=== PATIENT | male | born 1965 | race Hispanic/Latino ===

== ENCOUNTER 2024-12-04 14:07 | Emergency (ER) | payer OTHER ==
--- NOTE | 2024-12-04 14:44 | RAD REPORT ---
EXAM: Chest Single View HISTORY: near syncope COMPARISON: None. FINDINGS: LUNGS/PLEURA: Nonspecific prominence of the pulmonary interstitium. No focal consolidation or evidenc e of edema. MEDIASTINUM: The mediastinal silhouette is within normal limits. CARDIAC: The cardiac silhouette is within normal limits. UPPER ABDOMEN: No significant abnormality. BONES: No acute abnormality. LINES/TUBES/OTHER: N/A IMPRESSION: No evidence of acute cardiopulmonary disease.
--- NOTE | 2024-12-04 15:01 | RAD REPORT ---
EXAMINATION: CT HEAD WITHOUT CONTRAST CLINICAL INDICATION: Male, 59 years old.DIZZINESS TECHNIQUE: Axial CT images from the skull base to the vertex without intravenous contrast. Coronal an d sagittal reformatted images were created from the data set. One or more of the following dose reduction techniques were used: Automated exposure control, adjustment of the mA and/or kV according to patient size, and/or iterative reconstruction. Unless otherwise specified, incidental findings do not require dedicated imaging follow-up. [id number]. COMPARISON: No prior exam. FINDINGS: INTRACRANIAL: No acute intracranial hemorrhage. No hydrocephalus. No mass effect or midline shift. No significant white matter disease. VASCULATURE: No visualized abnormalities in the arteries or dural venous sinuses. SCALP/SKULL: No significant soft tissue or osseous abnormalities. SINUSES: The visualized paranasal sinuses and mastoid air cells are predominantly clear. IMPRESSION: No acute intracranial abnormality.
[2024-12-04] MEDS ORDERED: MECLIZINE HCL 12.5 MG TAB ONE (15:04)
[2024-12-04] MEDS ORDERED: NA CHLORIDE 0.9% 1,000 ML ONE (15:04)
[2024-12-04 15:46] LABS: Absolute Basophils 0.1 K/uL (0-0.5); Absolute Eosinophils 0.1 K/uL (0-0.5); Absolute Lymphocytes (CBC) 1.8 K/uL (0.7-4.9); Absolute Monocytes 0.5 K/uL (0.1-1.3); Basophils % 0.8 % (0-1.3); Eosinophils % 1.5 % (0-4.4); Hematocrit 39.6 % (39.6-49.0); Hemoglobin 13.7 g/dL (13.6-17.9); Lymphocytes % 23.8 % (15.3-44.8); MCH 28.5 pg (27.0-35.0); MCHC 34.6 g/dL (32.0-36.0); MCV 82.4 fL (80-100); MPV 10.8 fL (7.6-11.3); Monocytes % 6.1 % (3.3-12.3); Neutrophils % 67.8 % (41.7-73.7); Platelets 183 thou/uL (152-406); RBC Red Blood Cell Count 4.81 M/uL (4.33-5.43); Red Cell Distribution Width 13.5 % (12.1-15.2)
[2024-12-04 15:51] LABS: PT Prothrombin Time 11.4 SECONDS (9.4-12.5); Protime INR 1.09
[2024-12-04 16:03] LABS: ALT/SGPT 22 U/L (16-61); AST/SGOT 11 U/L (15-37); Albumin 3.1 g/dL (3.4-5.0); Albumin/Globulin Ratio 0.8 (1.1-1.8); Alkaline Phosphatase 84 U/L (45-117); Anion Gap 8.2 mEq/L (5.0-15.0); BUN Blood Urea Nitrogen 19 mg/dL (7-18); Bicarbonate 27 mEq/L (21-32); Bilirubin Total 0.4 mg/dL (0.2-1.0); Globulin 3.8 g/dL (2.3-3.5); Glomerular Filtration Rate 79 ml/min (=/>90); Glucose Level 310 mg/dL (74-106); Potassium 4.2 mEq/L (3.5-5.1); Protein, Total 6.9 g/dL (6.4-8.2); Sodium Level 136 mEq/L (136-145); Troponin High Sensitivity 3.4 pg/mL (<58.9)
[2024-12-04 16:05] LABS: Bilirubin Direct < 0.2 mg/dL (0-0.2); Bilirubin Indirect, Calculated 0.2 mg/dL (0.2-0.8)
[2024-12-04] MEDS ORDERED: INSULIN REGULAR (HUMAN) 100 UNIT/ML ONE (18:19)
[2024-12-04] MEDS ORDERED: NA CHLORIDE 0.9% 500 ML ONE (18:20)
[2024-12-04 19:04] LABS: Specific Gravity 1.013 (1.005-1.030); Sqamous Epithelial <5 /HPF (None Seen); Urine Bacteria None Seen /HPF (<20); Urine Bilirubin NEGATIVE (Negative); Urine Blood Negative (Negative); Urine Clarity Clear (Clear); Urine Color Light-Yellow (Yellow); Urine Culture Reflex Order NOT NEEDED; Urine Glucose 4+ (Over) (Negative); Urine Ketones NEGATIVE (Negative); Urine Micro Reflex YN NO BILL MICROSCOPIC; Urine Nitrite NEGATIVE (Negative); Urine Protein 1+ (Negative); Urine RBC <5 /HPF (None Seen); Urine Urobilinogen Normal (Normal); Urine WBC <5 /HPF (<5); Urine pH 5.5 (5.0-7.0)
--- NOTE | 2024-12-04 19:19 | EDPHYS ---
Physician Documentation [facility] Name: Jose Mckoy Age: 59 yrs Sex: Male : 1965 Arrival Date: 12/04/2024 Time: 14:07 Bed 15 Private MD: ED Physician Elia Gomez HPI: 12/04 14:20 This 59 yrs old Male presents to ER via EMS with complaints of Dizziness. cp 14:20 The patient presents with dizziness, feeling faint, lightheadedness. Onset: The cp symptoms/episode began/occurred today. 14:20 Context: occurred while the patient was working, just prior to the episode the patient cp experienced lightheadedness. 14:20 Associated signs and symptoms: Pertinent negatives: abdominal pain, chest pain, focal cp weakness, headache, palpitations, syncope. Severity of symptoms: in the emergency department the symptoms have improved mildly. Patient's baseline: Neuro: alert and fully oriented, Motor: no deficits, Ambulation: walks without assistance, Speech: normal. Patient with PMH significant for DM. Reports blood glucose usually runs over 300 and that he has not seen a doctor for several years due to lack of insurance. Currently has insurance and has appt with new physician next month. Historical: - Allergies: 14:18 No Known Allergies; db - PMHx: 14:18 Diabetes mellitus; db - Immunization history:: Adult Immunizations unknown. - Infectious Disease History:: Denies. - Social history:: Smoking status: Patient denies any tobacco usage or history of. ROS: 14:25 Constitutional: Negative for body aches, chills, fever, poor PO intake, cp 14:25 Eyes: Negative for injury, pain, redness, and discharge, cp 14:25 ENT: Negative for drainage from ear(s), ear pain, sore throat, difficulty swallowing, difficulty handling secretions, 14:25 Cardiovascular: Negative for chest pain, edema, palpitations, 14:25 Respiratory: Negative for cough, shortness of breath, wheezing, 14:25 Abdomen/GI: Negative for abdominal pain, vomiting, diarrhea, constipation, black/tarry stool, rectal bleeding, 14:25 Neuro: Positive for dizziness, near syncope, Negative for headache, seizure activity, speech changes, syncope, visual changes, weakness, 14:25 All other systems are negative, Exam: 14:30 Constitutional: The patient appears in no acute distress, alert, awake, cp non-diaphoretic, non-toxic, well developed, well nourished, 14:30 Head/Face: Normocephalic, atraumatic. cp 14:30 Eyes: Periorbital structures: appear normal, Conjunctiva: normal, no exudate, no injection, Sclera: no appreciated abnormality, Lids and lashes: appear normal, bilaterally, 14:30 ENT: External ear(s): are unremarkable, Nose: is normal, Mouth: Lips: moist, Oral mucosa: moist, Posterior pharynx: Airway: no evidence of obstruction, patent, 14:30 Neck: ROM/movement: is normal, is supple, without pain, no range of motions limitations, no meningismus, no nuchal rigidity, 14:30 Chest/axilla: Inspection: normal, 14:30 Cardiovascular: Rate: normal, Rhythm: regular, Edema: is not appreciated, JVD: is not appreciated, 14:30 Respiratory: the patient does not display signs of respiratory distress, Respirations: normal, no use of accessory muscles, no retractions, labored breathing, is not present, Breath sounds: are clear throughout, no decreased breath sounds, no stridor, no wheezing, 14:30 Abdomen/GI: Inspection: abdomen appears normal, Palpation: abdomen is soft and non-tender, in all quadrants, 14:30 Back: pain, is absent, ROM is normal, 14:30 Neuro: Orientation: to person, place \T\ time. Mentation: is normal, Cerebellar function: Romberg testing is negative, Motor: moves all fours, no focal deficits, Sensation: no obvious gross deficits, 15:33 ECG was reviewed by the Attending Physician. cp Vital Signs: 14:05 BP 127 / 69; Pulse 93; Resp 18; Temp 98.1; Pulse Ox 95% on R/A; Weight 90.72 kg; Height db 5 ft. 8 in. ; Pain 0/10; 14:30 BP 133 / 70; Pulse 83; Resp 16; Pulse Ox 99% on R/A; db 15:30 BP 129 / 95; Pulse 81; Resp 16; Pulse Ox 95% on R/A; db 16:30 BP 150 / 84; Pulse 68; Resp 16; Pulse Ox 98% on R/A; db 17:30 BP 151 / 90; Pulse 78; Resp 16; Pulse Ox 98% on R/A; db 18:00 BP 153 / 80; Pulse 76; Resp 16; Pulse Ox 99% on R/A; db 19:00 BP 162 / 86; Pulse 72; Resp 16; Pulse Ox 98% ; db 19:15 BP 150 / 88; Pulse 86; Resp 18; Pulse Ox 97% on R/A; Pain 0/10; rg5 14:05 Body Mass Index 30.41 (90.72 kg, 172.72 cm) db 14:05 Pain Scale: Adult db 19:15 Pain Scale: Adult rg5 MDM: 14:11 Medical Screening Exam initiated cp 15:00 Differential diagnosis: cardiac arrhythmia, CVA, GI bleed, hypovolemia, idiopathic cp dizziness, TIA, vertigo, DKA. 19:18 Data reviewed: vital signs, nurses notes, lab test result(s), EKG, radiologic studies, cp CT scan, and as a result, I will discharge patient. 19:18 I considered the following discharge prescriptions or medication management in the emergency department Medications were administered in the Emergency Department. See MAR. 19:18 Independent interpretation of the following test(s) in the Emergency Department EKG: See my EKG interpretation above. Care significantly affected by the following chronic conditions: Diabetes. Care significantly affected by the following Social Determinants of Health: Poor access to healthcare and/or lack of insurance. Counseling: I had a detailed discussion with the patient and/or guardian regarding the historical points, exam findings, and any diagnostic results supporting the discharge/admit diagnosis, lab results, radiology results, the need for outpatient follow up, for definitive care, a family practitioner, to return to the emergency department if symptoms worsen or persist or if there are any questions or concerns that arise at home. Response to treatment: the patient's symptoms have markedly improved after treatment, and as a result, I will discharge patient. 12/04 14:18 Order name: Basic Metabolic Panel; Complete Time: 18:13 12/04 18:13 Interpretation: Normal except: GLUC 310; BUN 19; GFR 79. 12/04 14:18 Order name: CBC with Diff; Complete Time: 18:13 12/04 14:18 Order name: LFT's; Complete Time: 18:13 12/04 14:18 Order name: Magnesium; Complete Time: 18:13 cp 02 14:18 Order name: PT-INR; Complete Time: 18:13 cp 12/04 14:18 Order name: Troponin HS; Complete Time: 18:13 cp 12/04 14:29 Order name: Urinalysis W/Microscopic; Complete Time: 19:04 cp 02/ 19:05 Interpretation: Normal except: UGLUC 4+ (Over); UPROT 1+. cp 02/ 19:16 Order name: Glucose, Ancillary Testing; Complete Time: 19:18 EDMS 02/ 14:18 Order name: XRAY Chest (1 view); Complete Time: 15:33 cp 02 14:29 Order name: CT Head Brain wo Cont; Complete Time: 15:33 cp 12/04 14:18 Order name: Cardiac monitoring; Complete Time: 15:32 cp 12/04 14:18 Order name: EKG - Nurse/Tech; Complete Time: 15:32 cp 12/04 14:18 Order name: IV Saline Lock; Complete Time: 15:32 cp 12/04 14:18 Order name: Labs collected and sent; Complete Time: 15:32 cp 12/04 14:18 Order name: O2 Per Protocol; Complete Time: 15:32 cp 12/04 14:18 Order name: O2 Sat Monitoring; Complete Time: 15:32 cp 12/04 14:29 Order name: Accucheck Blood Glucose; Complete Time: 15:32 cp 03 19:03 Order name: Accucheck Blood Glucose; Complete Time: 19:18 cp EC:33 Rate is 81 beats/min. Rhythm is regular. CO interval is prolonged at 202 msec. QRS cp interval is normal. QT interval is normal. T waves are Inverted in lead aVR. Interpreted by me. Reviewed by me. Administered Medications: 00:00 Drug: NS 0.9% IV 500 ml 500 ml IV at 1 bolus once; to be given as a bolus over 30 db minutes Volume: 500 ml; Route: IV; Rate: 1 bolus; Site: right antecubital; 19:10 Follow up: IV Status: Completed infusion; IV Intake: 500ml rg5 15:15 Drug: NS 0.9% IV 1000 ml IV at 1 bolus Per protocol; to be given as a bolus over 60 db minutes Route: IV; Rate: 1 bolus; Site: right antecubital; 19:18 Follow up: Response: No adverse reaction; IV Status: Completed infusion; IV Intake: db 1000ml 15:20 Drug: Meclizine PO 25 mg PO once Route: PO; db 19:18 Follow up: Response: No adverse reaction db 18:21 Drug: Insulin Regular Human Sub-Q 10 units Sub-Q once {Co-Signature: [email or web address] (shraddha Russell RN).} Route: Sub-Q; Site: right lower abdomen; 19:18 Follow up: Response: No adverse reaction; Blood sugar is lowered db Point of Care Testing: Blood Glucose: 19:05 Blood Glucose: 231 mg/dL; db Ranges: Critical Glucose Levels:Adult <50 mg/dl or >400 mg/dl <40 mg/dl or >180 mg/dl Disposition: 12/05 11:56 I was immediately available on-site in the Emergency Department for consultation in the ms3 care of the patient. Disposition Summary: 12/04/24 19:18 Discharge Ordered Notes: Location: Home cp Problem: new cp Symptoms: have improved cp Condition: Stable cp Diagnosis - Diabetes mellitus due to underlying condition with hyperglycemia cp - Dizziness and giddiness cp - Syncope Near cp Followup: cp - With: Private Physician - When: 2 - 3 days - Reason: Recheck today's complaints Discharge Instructions: - Discharge Summary Sheet cp - Dizziness cp - Hyperglycemia cp - Near-Syncope cp - Daily Diabetes Mellitus Record cp - Blood Glucose Monitoring, Adult cp - Diabetes Mellitus and Nutrition, Adult cp Forms: - Medication Reconciliation Form cp - Antibiotic Education cp - Prescription Opioid Use cp - Patient Portal Instructions cp - Leadership Thank You Letter cp Prescriptions: - Meclizine 25 mg Oral Tablet - take 1 tablet ORAL route every 8 hours As needed; 30 tablet; Refills: 0, cp Product Selection Permitted - Zofran 4 mg Oral Tablet - take 1 tablet ORAL route every 12 hours As needed; 20 tablet; Refills: 0, cp Product Selection Permitted Signatures: Dispatcher [employer] EDKS Jono Escamilla PA PA cp Sims, Marcus, DO DO ms3 Ariana Tyler RN RN Luis Vides RN rg5 Brie Russell RN kj2 Corrections: (The following items were deleted from the chart) 12/04 14:18 14:18 BASIC METABOLIC PANEL+C.LAB.BRZ ordered. EDMS EDMS 14:18 14:18 CBC+H.LAB.BRZ ordered. EDMS EDMS 14:18 14:18 HEPATIC FUNCTION+C.LAB.BRZ ordered. EDMS EDMS 14:18 14:18 MAGNESIUM+C.LAB.BRZ ordered. EDMS EDMS 14:18 14:18 PROTIME (+INR)+COAG.LAB.BRZ ordered. EDMS EDMS 14:18 14:18 Troponin High Sensitivity+C.LAB.BRZ ordered. EDMS EDMS 14:18 14:18 Chest Single View+RAD.RAD.BRZ ordered. EDMS EDMS 14:30 14:30 Urinalysis W/Microscopic+U.LAB.BRZ ordered. EDMS EDMS
--- NOTE | 2024-12-04 19:19 | ER ---
Nurse's Notes [facility] Name: Jsoe Mckoy Age: 59 yrs Sex: Male : 1965 Arrival Date: 12/04/2024 Time: 14:07 Bed 15 Private MD: Diagnosis: Diabetes mellitus due to underlying condition with hyperglycemia;Dizziness and giddiness;Syncope Near Presentation: 12/04 14:05 Chief complaint: DIZZINESS TODAY, NEAR SYNCOPAL EPISODE X 2 WHILE WORKING. STATES LAST db ATE LAST NIGHT. STOPPED TAKING METFORMIN X 2 YEARS AGO DUE TO INSURANCE. STATES TAKES GLUCOSE PILLS WHEN SUGAR FEELS LOW. Coronavirus screen: Client denies travel out of the [place] in the last 14 days. At this time, the client does not indicate any symptoms associated with coronavirus-19. Ebola Screen: Patient negative for fever greater than or equal to 101.5 degrees Fahrenheit, and additional compatible Ebola Virus Disease symptoms Patient denies exposure to infectious person. Patient denies travel to an Ebola-affected area in the 21 days before illness onset. No symptoms or risks identified at this time. Initial Sepsis Screen: Does the patient meet any 2 criteria? No. Patient's initial sepsis screen is negative. Does the patient have a suspected source of infection? No. Patient's initial sepsis screen is negative. Risk Assessment: Do you want to hurt yourself or someone else? Patient reports no desire to harm self or others. Onset of symptoms was December 04, 2024. Care prior to arrival: Medication(s) given: Normal saline infusion, 500 mL, IV initiated. 20 GA, in the right antecubital area, Glucose check: 327. 14:05 Method Of Arrival: EMS: [facility] db 14:05 Acuity: LAYLA 3 db Triage Assessment: 14:18 General: Appears in no apparent distress. comfortable, Behavior is calm, cooperative. db Pain: Denies pain. Neuro: Level of Consciousness is awake, alert, obeys commands, Oriented to person, place, time, situation. Respiratory: Airway is patent Respiratory effort is even, unlabored, Respiratory pattern is regular, symmetrical. Historical: - Allergies: 14:18 No Known Allergies; db - PMHx: 14:18 Diabetes mellitus; db - Immunization history:: Adult Immunizations unknown. - Infectious Disease History:: Denies. - Social history:: Smoking status: Patient denies any tobacco usage or history of. Screenin:34 [facility] ED Fall Risk Assessment (Adult) History of falling in the last 3 months, db including since admission No falls in past 3 months (0 pts) Confusion or Disorientation No (0 pts) Intoxicated or Sedated No (0 pts) Impaired Gait No (0 pts) Mobility Assist Device Used No (0 pt) Altered Elimination No (0 pt) Score/Fall Risk Level 0 - 2 = Low Risk Oriented to surroundings, Maintained a safe environment. Abuse screen: Denies threats or abuse. Denies injuries from another. Nutritional screening: No deficits noted. Tuberculosis screening: No symptoms or risk factors identified. Assessment: 16:55 Reassessment: Patient appears in no apparent distress at this time. Patient and/or db family updated on plan of care and expected duration. Pain level reassessed. Patient is alert, oriented x 3, equal unlabored respirations, skin warm/dry/pink. General: Appears in no apparent distress. comfortable, Behavior is calm, cooperative. Neuro: Level of Consciousness is awake, alert, obeys commands, Oriented to person, place, time, situation. Respiratory: Airway is patent Respiratory effort is even, unlabored, Respiratory pattern is regular, symmetrical. 18:15 Reassessment: Patient appears in no apparent distress at this time. Patient and/or db family updated on plan of care and expected duration. Pain level reassessed. Patient is alert, oriented x 3, equal unlabored respirations, skin warm/dry/pink. Vital Signs: 14:05 BP 127 / 69; Pulse 93; Resp 18; Temp 98.1; Pulse Ox 95% on R/A; Weight 90.72 kg; Height db 5 ft. 8 in. ; Pain 0/10; 14:30 BP 133 / 70; Pulse 83; Resp 16; Pulse Ox 99% on R/A; db 15:30 BP 129 / 95; Pulse 81; Resp 16; Pulse Ox 95% on R/A; db 16:30 BP 150 / 84; Pulse 68; Resp 16; Pulse Ox 98% on R/A; db 17:30 BP 151 / 90; Pulse 78; Resp 16; Pulse Ox 98% on R/A; db 18:00 BP 153 / 80; Pulse 76; Resp 16; Pulse Ox 99% on R/A; db 19:00 BP 162 / 86; Pulse 72; Resp 16; Pulse Ox 98% ; db 19:15 BP 150 / 88; Pulse 86; Resp 18; Pulse Ox 97% on R/A; Pain 0/10; rg5 14:05 Body Mass Index 30.41 (90.72 kg, 172.72 cm) db 14:05 Pain Scale: Adult db 19:15 Pain Scale: Adult rg5 ED Course: 14:08 Patient arrived in ED. db 14:10 Jono Escamilla PA is PHCP. cp 14:11 Elia Gomez DO is Attending Physician. cp 14:18 Triage completed. db 14:18 Arm band placed on Patient placed in an exam room. db 14:19 Ariana Tyler, RN is Primary Nurse. db 14:39 XRAY Chest (1 view) In Process Unspecified. EDMS 14:44 CT Head Brain wo Cont In Process Unspecified. EDMS 15:15 Inserted saline lock: Maintain EMS IV. Dressing intact. Good blood return noted. Site db clean \T\ dry. Gauge \T\ site: 20 g rac. 18:34 Patient has correct armband on for positive identification. Bed in low position. Call db light in reach. Side rails up X 1. Client placed on continuous cardiac and pulse oximetry monitoring. NIBP monitoring applied. pvc monitor on. Pulse ox on. NIBP on. Warm blanket given. Pillow given. 19:15 Provided Education on: post er care. rg5 19:15 IV discontinued, bleeding controlled, No redness/swelling at site. Pressure dressing rg5 applied. 19:15 No provider procedures requiring assistance completed. rg5 Administered Medications: 00:00 Drug: NS 0.9% IV 500 ml 500 ml IV at 1 bolus once; to be given as a bolus over 30 db minutes Volume: 500 ml; Route: IV; Rate: 1 bolus; Site: right antecubital; 19:10 Follow up: IV Status: Completed infusion; IV Intake: 500ml rg5 15:15 Drug: NS 0.9% IV 1000 ml IV at 1 bolus Per protocol; to be given as a bolus over 60 db minutes Route: IV; Rate: 1 bolus; Site: right antecubital; 19:18 Follow up: Response: No adverse reaction; IV Status: Completed infusion; IV Intake: db 1000ml 15:20 Drug: Meclizine PO 25 mg PO once Route: PO; db 19:18 Follow up: Response: No adverse reaction db 18:21 Drug: Insulin Regular Human Sub-Q 10 units Sub-Q once {Co-Signature: [email or web address] (shraddha Russell RN).} Route: Sub-Q; Site: right lower abdomen; 19:18 Follow up: Response: No adverse reaction; Blood sugar is lowered db Medication: 19:15 VIS not applicable for this client. rg5 Point of Care Testing: Blood Glucose: 19:05 Blood Glucose: 231 mg/dL; db Ranges: Intake: 19:10 IV: 500ml; Total: 500ml. rg5 19:18 IV: 1000ml; Total: 1500ml. db Outcome: 19:15 Discharged to home ambulatory, rg5 19:15 Condition: stable 19:15 Discharge instructions given to patient, Instructed on discharge instructions, follow up and referral plans. Demonstrated understanding of instructions, follow-up care, medications, Prescriptions given X 2, 19:18 Discharge ordered by MD. cp 19:33 Patient left the ED. rg5 Signatures: Dispatcher [employer] EDMS Jono Escamilla PA PA cp Ariana Tyler, RN RN Luis Vides RN RN rg5 Brie Russell RN [email or web address]
[2024-12-04 19:57] VITALS: BP 162/86; O2SAT 98
--- NOTE | 2024-12-05 12:13 | EKG ---
Test Date: 2024-12-04 Test Time: 15:27:41 Quarry Manager: SOTERO MEASUREMENT RESULTS: Intervals: Rate: 81 ID: [id number] QRSD: 90 QT: 384 QTc: 446 [employer]: P: 22 ID: [id number] QRS: 44 T: 31 INTERPRETIVE STATEMENTS: Normal sinus rhythm Normal ECG No previous ECG available for comparison Electronically Signed On 12-05-24 12:11:23 SENIOR APPLICATION PROGRAMMER by Paulino Vides
== END 2024-12-04 19:33 | disposition home or self-care (01) ==
LOC: ER 14:07
DX: E11.65 Type 2 diabetes mellitus with hyperglycemia (principal); R55 Syncope and collapse
CPT/HCPCS: 96361; 93005; 85025; 81001; 80048; 36415; 83735; 85610; 82947; 80076; 84484; 70450; 71045; 96360; 96372; 99285; J8597; J7040; J7030